=== PATIENT | female | born 1945 | race Caucasian/White ===

== ENCOUNTER 2017-11-18 14:05 | Emergency (ER) | payer OTHER ==
[2017-11-18] MEDS ORDERED: ALBUTEROL 2.5 MG/3 ML NEB SOL ONE ×2 (15:42→18:21)
[2017-11-18] MEDS ORDERED: METHYLPREDNISOLONE 125 MG INJ ONE (15:42)
[2017-11-18] MEDS ORDERED: IPRATROPIUM BROM 0.5MG/2.5ML ONE ×2 (15:42→18:21)
--- NOTE | 2017-11-18 15:57 | RAD REPORT ---
EXAM DESCRIPTION: Isaura Single View11/18/2017 3:47 pm CLINICAL HISTORY: cough COMPARISON: February 2017 FINDINGS: The lungs appear clear of acute infiltrate. The heart is normal size IMPRESSION: No acute abnormalities displayed
[2017-11-18 17:10] LABS: Absolute Lymphocytes (CBC) 1.5 K/uL (0.7-4.9); Absolute Monocytes 0.7 K/uL (0.1-1.3); Basophils % 0.8 % (0-1.3); Hematocrit 34.6 % (36.0-45.0); Lymphocytes % 23.3 % (15.3-44.8); MCH 29.7 pg (27.0-35.0); MCV 90.6 fL (80-100); MPV 7.9 fL (7.6-11.3); Monocytes % 11.1 % (3.3-12.3); RBC Red Blood Cell Count 3.82 M/uL (3.86-4.86)
[2017-11-18 17:18] LABS: Potassium 3.7 mEq/L (3.6-5.0)
[2017-11-18 17:19] LABS: Magnesium 1.9 mg/dL (1.8-2.5)
[2017-11-18 19:12] LABS: Urine Blood TRACE (NEG); Urine Glucose NEGATIVE (NEG); Urine Protein NEGATIVE (NEG); Urine Specific Gravity 1.005 (1.005-1.030)
--- NOTE | 2017-11-18 19:23 | ER ---
Nurse's Notes [facility] Name: Bridget Meraz Age: 72 yrs Sex: Female : 1945 Arrival Date: 11/18/2017 Time: 14:09 Bed 30 Private MD: Zeenat Ruiz Diagnosis: Acute bronchitis;Chronic obstructive pulmonary disease with (acute) exacerbation Presentation: 11/18 14:15 Presenting complaint: Patient states: productive cough with green sputum, sinus sv congestion started 2 months ago and has increased since Friday. Transition of care: patient was not received from another setting of care. Onset of symptoms was November 14, 2017. 14:15 Method Of Arrival: Wheelchair sv 14:15 Acuity: ROCIO 3 sv 17:09 Risk Assessment: Do you want to hurt yourself or someone else? Patient reports no mb3 desire to harm self or others. Initial Sepsis Screen: Does the patient meet any 2 criteria? No. Patient's initial sepsis screen is negative. Does the patient have a suspected source of infection? No. Patient's initial sepsis screen is negative. Care prior to arrival: None. Triage Assessment: 19:34 General: Appears distressed, uncomfortable, ill. General: Behavior is calm, mb3 cooperative, appropriate for age. Respiratory: Onset: The symptoms/episode began/occurred gradually, the patient has moderate shortness of breath. Respiratory: Reports cough that is productive. Historical: - Allergies: 14:19 lidocaine preservative; sv - Home Meds: 14:19 [place] Thyroid 90 mg Oral tab [Active]; omeprazole 40 mg Oral cpDR 1 cap once daily sv [Active]; atenolol 50 mg Oral tab 1 tab once daily [Active]; Mucinex 600 mg Oral Ta12 1 tab every 12 hours [Active]; tramadol 50 mg Oral tab 2 tabs every 6 hours [Active]; celecoxib 200 mg Oral cap 1 cap once daily [Active]; Plavix 75 mg Oral tab 1 tab once daily [Active]; - PMHx: 14:19 Head injury; Atrial Fib; sv - PSHx: 14:19 head surgery; sv - Immunization history:: Adult Immunizations up to date. - Social history:: Smoking status: unknown. - Ebola Screening: : Patient denies travel to an Ebola-affected area in the 21 days before illness onset No symptoms or risks identified at this time. Screenin:07 Abuse screen: Denies threats or abuse. Nutritional screening: No deficits noted. mb3 Tuberculosis screening: No symptoms or risk factors identified. Fall Risk No fall in past 12 months (0 pts). Secondary diagnosis (15 points) IV access (20 points). Ambulatory Aid- Crutches/Cane/Walker (15 pts). Gait- Normal/Bed Rest/Wheelchair (0 pts) Mental Status- Oriented to own ability (0 pts). Total [place] Fall Scale indicates High Risk Score (45 or more points). Fall prevention measures have been instituted. Side Rails Up X 2 Placed Close to Nursing Station Frequent Obs/Assessments Occuring As available patient and family educated on Fall Prevention Program and Strategies. Assessment: 18:32 General: Appears ill, well groomed, Behavior is calm, cooperative, appropriate for age. mb3 Pain: Denies pain. Neuro: Level of Consciousness is awake, alert, obeys commands, Oriented to person, place, time, situation, Appropriate for age. Cardiovascular: Denies chest pain, Heart tones present Capillary refill < 3 seconds Patient's skin is warm and dry. Rhythm is sinus rhythm. Respiratory: Reports cough that is productive, labored breathing since last week. Airway is patent Respiratory effort is even, labored, Respiratory pattern is regular, symmetrical, Breath sounds are coarse bilaterally. in right upper lobe and left upper lobe Breath sounds are diminished bilaterally. in right middle lobe, left lower lobe, right lower lobe, left posterior lower lobe, right posterior middle lobe and right posterior lower lobe. GI: No signs and/or symptoms were reported involving the gastrointestinal system. Abdomen is flat, Bowel sounds present X 4 quads. : No signs and/or symptoms were reported regarding the genitourinary system. EENT: Reports nasal congestion since last week. Vital Signs: 14:19 BP 124 / 76; Pulse 66; Resp 20; Temp 96.6; Pulse Ox 96% ; Weight 79.38 kg; Height 5 ft. sv 7 in. (170.18 cm); Pain 0/10; 17:00 BP 175 / 115; Pulse 62; Resp 20; Pulse Ox 100% on R/A; mb3 17:00 BP 153 / 87; Pulse 62; Resp 21; Pulse Ox 100% on R/A; mb3 18:31 BP 157 / 85; Pulse 83; Resp 20; Pulse Ox 100% on R/A; mb3 14:19 Body Mass Index 27.41 (79.38 kg, 170.18 cm) sv ED Course: 14:09 Patient arrived in ED. mr 14:10 Mobile, Zeenat is Private Physician. mr 14:16 Triage completed. sv 14:19 Arm band placed on right wrist. sv 14:19 Patient placed in waiting room, Patient notified of wait time. sv 15:09 Camden Quintero PA is PHCP. jr8 15:09 Alberto Terrazas MD is Attending Physician. jr8 15:11 Sean Aguilera, KAYCEE is Primary Nurse. mb3 15:45 X-ray completed. Portable x-ray completed in exam room. Patient tolerated procedure kc2 well. 15:45 XRAY Chest (1 view) In Process Unspecified. EDMS 16:02 EKG done, by laundry technician. reviewed by Camden SHEPHERD. sm3 16:46 Inserted saline lock: 20 gauge in right antecubital area, using aseptic technique. mb3 Blood collected. 18:35 Patient has correct armband on for positive identification. Placed in gown. Bed in low mb3 position. Call light in reach. Side rails up X 1. monitoring analyst on. Pulse ox on. NIBP on. 19:36 No provider procedures requiring assistance completed. IV discontinued, intact, mb3 bleeding controlled, No redness/swelling at site. Pressure dressing applied. Administered Medications: 16:46 Drug: SOLU-Medrol 125 mg Route: IVP; Site: right antecubital; mb3 19:36 Follow up: Response: No adverse reaction mb3 16:50 Drug: Albuterol - atroVENT (3:1) (2.5 mg - 0.5 mg) 3 ml Route: Nebulizer; mb3 19:36 Follow up: Response: No adverse reaction mb3 18:20 Drug: Albuterol - atroVENT (3:1) (2.5 mg - 0.5 mg) 3 ml Route: Nebulizer; mb3 19:36 Follow up: Response: No adverse reaction mb3 Outcome: 19:22 Discharge ordered by . jr8 19:35 Discharged to home ambulatory. mb3 19:35 Condition: stable 19:35 Discharge instructions given to patient, Instructed on discharge instructions, follow up and referral plans. medication usage, Demonstrated understanding of instructions, follow-up care, medications, Prescriptions given X 4. 19:37 Patient left the ED. mb3 Signatures: Dispatcher [employer] EDMS Daniela Reyes, Chuyita Wahl RN mr Camden Quintero PA PA jr8 Yarely Nunez2 Sean Aguilera RN RN mb3 Leah Davila3
--- NOTE | 2017-11-18 19:23 | EDPHYS ---
Physician Documentation [facility] Name: Bridget Meraz Age: 72 yrs Sex: Female : 1945 Arrival Date: 11/18/2017 Time: 14:09 Bed 30 Private MD: Zeenat Ruiz ED Physician Alberto Terrazas HPI: 11/18 15:45 This 72 yrs old Female presents to ER via Wheelchair with complaints of jr8 Cough, Breathing Difficulty. 15:45 The patient or guardian reports cough, that is intermittent, described as moderate, jr8 with productive sputum, that is yellow, difficulty breathing. Onset: The symptoms/episode began/occurred gradually, 2 day(s) ago. Severity of symptoms: At their worst the symptoms were moderate, in the emergency department the symptoms are unchanged. Associated signs and symptoms: The patient has no apparent associated signs or symptoms. The patient has not experienced similar symptoms in the past. The patient has not recently seen a physician. Historical: - Allergies: 14:19 lidocaine preservative; sv - Home Meds: 14:19 [place] Thyroid 90 mg Oral tab [Active]; omeprazole 40 mg Oral cpDR 1 cap once daily sv [Active]; atenolol 50 mg Oral tab 1 tab once daily [Active]; Mucinex 600 mg Oral Ta12 1 tab every 12 hours [Active]; tramadol 50 mg Oral tab 2 tabs every 6 hours [Active]; celecoxib 200 mg Oral cap 1 cap once daily [Active]; Plavix 75 mg Oral tab 1 tab once daily [Active]; - PMHx: 14:19 Head injury; Atrial Fib; sv - PSHx: 14:19 head surgery; sv - Immunization history:: Adult Immunizations up to date. - Social history:: Smoking status: unknown. - Ebola Screening: : Patient denies travel to an Ebola-affected area in the 21 days before illness onset No symptoms or risks identified at this time. ROS: 15:45 Eyes: Negative for injury, pain, redness, and discharge, ENT: Negative for injury, jr8 pain, and discharge, Neck: Negative for injury, pain, and swelling, Cardiovascular: Negative for chest pain, palpitations, and edema, Abdomen/GI: Negative for abdominal pain, nausea, vomiting, diarrhea, and constipation, Back: Negative for injury and pain, MS/Extremity: Negative for injury and deformity, Skin: Negative for injury, rash, and discoloration, Neuro: Negative for headache, weakness, numbness, tingling, and seizure. 15:45 Respiratory: Positive for cough, with yellow sputum, dyspnea on exertion, shortness of breath, wheezing. Exam: 15:45 Eyes: Pupils equal round and reactive to light, extra-ocular motions intact. Lids and jr8 lashes normal. Conjunctiva and sclera are non-icteric and not injected. Cornea within normal limits. Periorbital areas with no swelling, redness, or edema. ENT: Nares patent. No nasal discharge, no septal abnormalities noted. Tympanic membranes are normal and external auditory canals are clear. Oropharynx with no redness, swelling, or masses, exudates, or evidence of obstruction, uvula midline. Mucous membranes moist. Neck: Trachea midline, no thyromegaly or masses palpated, and no cervical lymphadenopathy. Supple, full range of motion without nuchal rigidity, or vertebral point tenderness. No Meningismus. Cardiovascular: Regular rate and rhythm with a normal S1 and S2. No gallops, murmurs, or rubs. Normal PMI, no JVD. No pulse deficits. Abdomen/GI: Soft, non-tender, with normal bowel sounds. No distension or tympany. No guarding or rebound. No evidence of tenderness throughout. Back: No spinal tenderness. No costovertebral tenderness. Full range of motion. Skin: Warm, dry with normal turgor. Normal color with no rashes, no lesions, and no evidence of cellulitis. MS/ Extremity: Pulses equal, no cyanosis. Neurovascular intact. Full, normal range of motion. Neuro: Awake and alert, GCS 15, oriented to person, place, time, and situation. Cranial nerves II-XII grossly intact. Motor strength 5/5 in all extremities. Sensory grossly intact. Cerebellar exam normal. Normal gait. 15:45 Respiratory: the patient does not display signs of respiratory distress, Respirations: normal, symetrical, no use of accessory muscles, no grunting, no evidence of nasal flaring, no appreciated paradoxical movements, no prolonged exhalations, no pursed lip breathing, no retractions, no shallow respirations, no splinting, no tachypnea, Breath sounds: wheezing: expiratory that is moderate, is heard diffusely. Vital Signs: 14:19 BP 124 / 76; Pulse 66; Resp 20; Temp 96.6; Pulse Ox 96% ; Weight 79.38 kg; Height 5 ft. sv 7 in. (170.18 cm); Pain 0/10; 17:00 BP 175 / 115; Pulse 62; Resp 20; Pulse Ox 100% on R/A; mb3 17:00 BP 153 / 87; Pulse 62; Resp 21; Pulse Ox 100% on R/A; mb3 18:31 BP 157 / 85; Pulse 83; Resp 20; Pulse Ox 100% on R/A; mb3 14:19 Body Mass Index 27.41 (79.38 kg, 170.18 cm) sv MDM: 15:09 Patient medically screened. jr 19:20 Differential Diagnosis: Bronchitis Influenza Pneumonia Other COPD with exacerbation. jr8 Data reviewed: vital signs, nurses notes, lab test result(s), EKG, radiologic studies, plain films, and as a result, I will discharge patient. Data interpreted: Pulse oximetry: on room air is 96 %. Interpretation: normal. Counseling: I had a detailed discussion with the patient and/or guardian regarding: the historical points, exam findings, and any diagnostic results supporting the discharge/admit diagnosis, lab results, radiology results, the need for outpatient follow up, a family practitioner, to return to the emergency department if symptoms worsen or persist or if there are any questions or concerns that arise at home. Response to treatment: the patient's symptoms have markedly improved after treatment. ED course: Patient stated that she is breath much better. Wants to go home. Oxygen saturation normal. Will send home on albuterol and steroids. History of COPD. Will treat with antibiotics due to exacerbation . 11/18 15:18 Order name: Basic Metabolic Panel; Complete Time: 17: 11/18 15:18 Order name: BNP; Complete Time: 18:01 [facility] 11/18 15:18 Order name: CBC with Diff; Complete Time: 18:01 [facility] 11/18 15:18 Order name: Magnesium; Complete Time: 17:22 [facility] 11/18 15:19 Order name: Blood Culture Adult (2) [facility] 11/18 19:09 Order name: Urine Dipstick--Ancillary (enter results); Complete Time: 19:14 11/18 15:18 Order name: XRAY Chest (1 view); Complete Time: 15:58 11/18 15:18 Order name: EKG; Complete Time: 15:19 11/18 15:18 Order name: Cardiac monitoring; Complete Time: 17:11/18 15:18 Order name: EKG - Nurse/Tech; Complete Time: 17:11/18 15:18 Order name: IV Saline Lock; Complete Time: 17:11/18 15:18 Order name: Labs collected and sent; Complete Time: :11/18 15:18 Order name: O2 Per Protocol; Complete Time: 17:11/18 15:18 Order name: O2 Sat Monitoring; Complete Time: :11/18 15:18 Order name: Urine Dipstick-Ancillary (obtain specimen); Complete Time: 17: Administered Medications: 16:46 Drug: SOLU-Medrol 125 mg Route: IVP; Site: right antecubital; mb3 19:36 Follow up: Response: No adverse reaction mb3 16:50 Drug: Albuterol - atroVENT (3:1) (2.5 mg - 0.5 mg) 3 ml Route: Nebulizer; mb3 19:36 Follow up: Response: No adverse reaction mb3 18:20 Drug: Albuterol - atroVENT (3:1) (2.5 mg - 0.5 mg) 3 ml Route: Nebulizer; mb3 19:36 Follow up: Response: No adverse reaction mb3 Disposition: 11/19 07:27 Co-signature as Attending Physician, Alberto Terrazas MD I agree with the assessment and geronimo plan of care. Disposition: 11/18/17 19:22 Discharged to Home. Impression: Acute bronchitis, Chronic obstructive pulmonary disease with (acute) exacerbation. - Condition is Stable. - Discharge Instructions: Acute Bronchitis, Chronic Obstructive Pulmonary Disease. - Prescriptions for Prednisone 20 mg Oral Tablet - take 1 tablet by ORAL route once daily for 5 days; 5 tablet. Albuterol Sulfate 2.5 mg /3 mL (0.083 %) Inhalation Solution for Nebulization - inhale 1 unit by NEBULIZATION route every 8 hours As needed; 1 box. Zithromax Z- Angel 250 mg Oral Tablet - take 1 tablet by ORAL route as directed for 5 days Day 1 - take two (2) tablets one time. Day 2, 3, 4 , 5 take one (1) tablet once daily.; 6 tablet. Albuterol Sulfate 90 mcg/actuation - inhale 1-2 puff by INHALATION route every 4-6 hours; 1 Inhaler. - Medication Reconciliation Form, Thank You Letter, Antibiotic Education, Prescription Opioid Use form. - Follow up: Private Physician; When: 2 - 3 days; Reason: Recheck today's complaints, Continuance of care, Re-evaluation by your physician. - Problem is new. - Symptoms have improved. Signatures: Dispatcher [employer] Daniela Briceno RN RN Alberto Benavidez MD MD cha Roszak, Josh, PA PA jr8 Sean Aguilera RN RN mb3 Corrections: (The following items were deleted from the chart) 11/18 19:37 19:22 11/18/2017 19:22 Discharged to Home. Impression: Acute bronchitis; Chronic mb3 obstructive pulmonary disease with (acute) exacerbation. Condition is Stable. Forms are Medication Reconciliation Form, Thank You Letter, Antibiotic Education, Prescription Opioid Use. Follow up: Private Physician; When: 2 - 3 days; Reason: Recheck today's complaints, Continuance of care, Re-evaluation by your physician. Problem is new. Symptoms have improved. jr8
--- NOTE | 2017-11-18 21:33 | EKG ---
Test Date: 2017-11-18 Test Time: 15:44:52 Internal Audit Consultant: RAMON MEASUREMENT RESULTS: Intervals: Rate: 57 AR: 220 QRSD: 92 QT: 442 QTc: 430 [place]: P: 48 AR: 220 QRS: -18 T: 21 INTERPRETIVE STATEMENTS: Sinus bradycardia with sinus arrhythmia with 1st degree AV block Low voltage QRS Cannot rule out Anteroseptal infarct, age undetermined Abnormal ECG Compared to ECG 07/01/2013 12:00:20 Low QRS voltage now present Sinus rhythm no longer present Myocardial infarct finding still present Electronically Signed On 11-18-17 21:33:15 CDT by Yassine Buckner
== END 2017-11-18 19:37 | disposition home or self-care (01) ==
LOC: ER 14:05
DX: J20.9 Acute bronchitis, unspecified (principal); J44.0 Chronic obstructive pulmonary disease with (acute) lower respiratory infection; I48.91 Unspecified atrial fibrillation; Z79.01 Long term (current) use of anticoagulants; Z88.8 Allergy status to other drugs, medicaments and biological substances
CPT/HCPCS: 36415; 71045; 80048; 81003; 83735; 83880; 85025; 87040 ×2; 93005; 94640; 96374; 99285; J2930

== ENCOUNTER 2018-10-23 14:18 | Emergency (ER) | payer MEDICARE, OTHER ==
[2018-10-23] MEDS ORDERED: MEPERIDINE HCL 25 MG/0.5 ML ONE (15:03)
--- NOTE | 2018-10-23 15:25 | RAD REPORT ---
EXAM DESCRIPTION: CT - Pelvis Wo Cont - 10/23/2018 3:01 pm CLINICAL HISTORY: Pain;Trauma COMPARISON: No comparisons TECHNIQUE: All CT scans are performed using dose optimization technique as appropriate and may inclu de automated exposure control or mA/KV adjustment according to patient size. FINDINGS: The bones are osteopenic. No fracture, subluxation or aggressive marrow lesion. Mild osteoarthritic changes involving both hips . No fracture, dislocation or AVN. IMPRESSION: No fracture or other acute process identified.
--- NOTE | 2018-10-23 15:36 | RAD REPORT ---
EXAM DESCRIPTION: CT - Spine Lumbar Wo Con - 10/23/2018 2:59 pm CLINICAL HISTORY: Radiculopathy. LOWER BACK PAIN COMPARISON: No comparisons TECHNIQUE: Axial noncontrast CT imaging of the lumbar spine was performed with coronal and sagittal re-formatted images. All CT scans are performed using dose optimization technique as appropriate and may include automated exposure control or mA/KV adjustment according to patient size. FINDINGS: Mild anterior wedge compression fracture is seen affecting L3 along the anterior superior endplate. Loss of vertebral body height is minimal estimated at 5-10%. Paraspinal tissues are normal in thickness. No paraspinal abscess or hematoma seen. 4 mm degenerative anterolisthesis of L3 on 4. 6 mm degenerative anterolisthesis of L4 on 5. Hardware is present L4-5. IMPRESSION: Mild anterior wedge compression fracture affecting the L3 vertebral body without canal c ompromise. This is likely acute. Loss of vertebral body height is minimal at 5-10%. MR imaging lumbar spine could be obtained for confirmation of acuity of this injury.
--- NOTE | 2018-10-23 15:50 | ER ---
Nurse's Notes [facility] Name: Bridget Meraz Age: 73 yrs Sex: Female : 1945 Arrival Date: 10/23/2018 Time: 14:22 Bed 18 Private MD: Zeenat Ruiz Diagnosis: Wedge compression fracture of third lumbar vertebra Presentation: 10/23 14:26 Presenting complaint: Patient states: slip and fall on Wed and injured her back. c/o sv mid and low back pain. Transition of care: patient was not received from another setting of care. Onset of symptoms was October 21, 2018. Initial Sepsis Screen: Does the patient meet any 2 criteria? No. Patient's initial sepsis screen is negative. Does the patient have a suspected source of infection? No. Patient's initial sepsis screen is negative. Care prior to arrival: Medication(s) given: [place] 10 mg taken at 1200 today. 14:26 Method Of Arrival: Ambulatory sv 14:26 Acuity: ROCIO 3 sv Historical: - Allergies: 14:28 lidocaine preservative; sv - PMHx: 14:28 Atrial Fib; Head injury; sv - PSHx: 14:28 head surgery; sv Screenin:45 Abuse screen: Denies threats or abuse. Nutritional screening: No deficits noted. em Tuberculosis screening: No symptoms or risk factors identified. Fall Risk None identified. Assessment: 14:45 General: Appears in no apparent distress. uncomfortable, Behavior is calm, cooperative. em Pain: Complains of pain in lumbar area Pain currently is 9 out of 10 on a pain scale. Neuro: Level of Consciousness is awake, alert, obeys commands, Oriented to person, place, time, situation, Bill Of Lading Clerk are equal bilaterally Moves all extremities. Speech is normal, Intact. Cardiovascular: Capillary refill < 3 seconds Patient's skin is warm and dry. Respiratory: Airway is patent Respiratory effort is even, unlabored, Respiratory pattern is regular, symmetrical. Derm: Skin is intact, is healthy with good turgor, Skin is pink, warm \T\ dry. Musculoskeletal: Circulation, motion, and sensation intact. Capillary refill < 3 seconds, Range of motion: intact in all extremities. 14:55 Reassessment: I agree with previous assessment. 15:45 Reassessment: Patient appears in no apparent distress at this time. Patient and/or em family updated on plan of care and expected duration. Pain level reassessed. Patient is alert, oriented x 3, equal unlabored respirations, skin warm/dry/pink. Vital Signs: 14:28 BP 138 / 76; Pulse 70; Resp 22; Temp 98.2; Pulse Ox 95% ; Weight 81.65 kg; Height 5 ft. sv 7 in. (170.18 cm); Pain 9/10; 15:45 BP 145 / 68; Pulse 68; Resp 18; Pulse Ox 99% on R/A; Pain 5/10; em 14:28 Body Mass Index 28.19 (81.65 kg, 170.18 cm) sv ED Course: 14:22 Patient arrived in ED. rg4 14:22 Zeenat Ruiz is Private Physician. rg4 14:28 Triage completed. sv 14:28 Arm band placed on. sv 14:34 Maryanne Austin FNP-C is [facility]. kb 14:35 Shaheen Carbone MD is Attending Physician. kb 14:45 Patient has correct armband on for positive identification. Bed in low position. Call em light in reach. Adult w/ patient. 14:49 Jimmy Schwab LVN is Primary Nurse. em 14:59 CT Lumbar Spine Wo Con In Process Unspecified. EDMS 15:00 CT Pelvis wo Cont In Process Unspecified. EDMS 16:02 No provider procedures requiring assistance completed. Patient did not have IV access em during this emergency room visit. Administered Medications: 15:16 Drug: Demerol 25 mg Route: IM; Site: right deltoid; em 15:45 Follow up: Response: No adverse reaction; Pain is decreased em Outcome: 15:49 Discharge ordered by MD. kb 16:02 Discharged to home via wheelchair. em 16:02 Condition: good 16:02 Discharge instructions given to patient, Instructed on discharge instructions, follow up and referral plans. Demonstrated understanding of instructions, follow-up care. 16:06 Patient left the ED. em Signatures: Dispatcher [employer] EDMS Maryanne Austin FNP-C FNP-Ckb Verde, Stephanie, RN RN sv Jimmy Schwab LVN LVN em Nolvia Mcfarlane RN RN hb Garcia, Rubi rg4 Corrections: (The following items were deleted from the chart) 14:29 14:26 Care prior to arrival: None. sv sv
--- NOTE | 2018-10-23 15:50 | EDPHYS ---
Physician Documentation [facility] Name: Bridget Meraz Age: 73 yrs Sex: Female : 1945 Arrival Date: 10/23/2018 Time: 14:22 Bed 18 Private MD: Zeenat Ruiz ED Physician Shaheen Carbone HPI: 10/23 15:48 This 73 yrs old Female presents to ER via Ambulatory with complaints of Back kb Pain. 15:48 Details of fall: The patient fell from an upright position, while walking. Onset: The kb symptoms/episode began/occurred 2 day(s) ago. Associated injuries: The patient sustained injury to the low back, pain, pain with movement. Severity of symptoms: At their worst the symptoms were moderate, in the emergency department the symptoms are unchanged. The patient has not experienced similar symptoms in the past. The patient has not recently seen a physician. Historical: - Allergies: 14:28 lidocaine preservative; sv - PMHx: 14:28 Atrial Fib; Head injury; sv - PSHx: 14:28 head surgery; sv ROS: 15:48 Constitutional: Negative for fever, chills, and weight loss, Cardiovascular: Negative kb for chest pain, palpitations, and edema, Respiratory: Negative for shortness of breath, cough, wheezing, and pleuritic chest pain, Abdomen/GI: Negative for abdominal pain, nausea, vomiting, diarrhea, and constipation, MS/Extremity: Negative for injury and deformity, Skin: Negative for injury, rash, and discoloration, Neuro: Negative for headache, weakness, numbness, tingling, and seizure. 15:48 Back: Positive for injury or acute deformity, pain at rest, pain with movement, Negative for decreased range of motion, radiated pain. Exam: 15:47 Constitutional: This is a well developed, well nourished patient who is awake, alert, kb and in no acute distress. Head/Face: Normocephalic, atraumatic. Chest/axilla: Normal chest wall appearance and motion. Nontender with no deformity. No lesions are appreciated. Cardiovascular: Regular rate and rhythm with a normal S1 and S2. No gallops, murmurs, or rubs. Normal PMI, no JVD. No pulse deficits. Respiratory: Lungs have equal breath sounds bilaterally, clear to auscultation and percussion. No rales, rhonchi or wheezes noted. No increased work of breathing, no retractions or nasal flaring. Abdomen/GI: Soft, non-tender, with normal bowel sounds. No distension or tympany. No guarding or rebound. No evidence of tenderness throughout. Skin: Warm, dry with normal turgor. Normal color with no rashes, no lesions, and no evidence of cellulitis. MS/ Extremity: Pulses equal, no cyanosis. Neurovascular intact. Full, normal range of motion. Neuro: Awake and alert, GCS 15, oriented to person, place, time, and situation. Cranial nerves II-XII grossly intact. Motor strength 5/5 in all extremities. Sensory grossly intact. Cerebellar exam normal. Normal gait. 15:47 Back: pain, that is moderate, of the lumbar area, left low back and right low back, ROM is painful, normal spinal alignment noted. Vital Signs: 14:28 BP 138 / 76; Pulse 70; Resp 22; Temp 98.2; Pulse Ox 95% ; Weight 81.65 kg; Height 5 ft. sv 7 in. (170.18 cm); Pain 9/10; 15:45 BP 145 / 68; Pulse 68; Resp 18; Pulse Ox 99% on R/A; Pain 5/10; em 14:28 Body Mass Index 28.19 (81.65 kg, 170.18 cm) sv MDM: 14:35 Patient medically screened. kb 15:47 Data reviewed: vital signs, nurses notes. Data interpreted: Pulse oximetry: on room air kb is 95 %. Interpretation: normal. Counseling: I had a detailed discussion with the patient and/or guardian regarding: the historical points, exam findings, and any diagnostic results supporting the discharge/admit diagnosis, radiology results, the need for outpatient follow up, a family practitioner, to return to the emergency department if symptoms worsen or persist or if there are any questions or concerns that arise at home. 15:50 ED course: Pt takes [place] 10/325mg for chronic pain. kb 10/23 14:45 Order name: CT Lumbar Spine Wo Con; Complete Time: 15:41 kb 10/23 14:45 Order name: CT Pelvis wo Cont; Complete Time: 15:27 kb Administered Medications: 15:16 Drug: Demerol 25 mg Route: IM; Site: right deltoid; em 15:45 Follow up: Response: No adverse reaction; Pain is decreased em Disposition: 10/23/18 15:49 Discharged to Home. Impression: Wedge compression fracture of third lumbar vertebra. - Condition is Stable. - Discharge Instructions: Spinal Compression Fracture. - Medication Reconciliation Form, Thank You Letter, Antibiotic Education, Prescription Opioid Use form. - Follow up: Emergency Department; When: As needed; Reason: Worsening of condition. Follow up: Private Physician; When: 2 - 3 days; Reason: Recheck today's complaints, Continuance of care, Re-evaluation by your physician. Addendum: 10/24/2018 22:26 Co-signature as Attending Physician, Shaheen Carbone MD. r n Signatures: Dispatcher [employer] EDMaryanne Dinh, [employer]-Daniela Ken, RN RN Jimmy Schwab, HAT MENDER HAT MENDER Shaheen Olmstead MD MD internal control specialist: (The following items were deleted from the chart) 10/23 16:06 15:49 10/23/2018 15:49 Discharged to Home. Impression: Wedge compression fracture of em third lumbar vertebra. Condition is Stable. Forms are Medication Reconciliation Form, Thank You Letter, Antibiotic Education, Prescription Opioid Use. Follow up: Emergency Department; When: As needed; Reason: Worsening of condition. Follow up: Private Physician; When: 2 - 3 days; Reason: Recheck today's complaints, Continuance of care, Re-evaluation by your physician. kb
== END 2018-10-23 16:06 | disposition home or self-care (01) ==
LOC: ER 14:18
DX: S32.030A Wedge compression fracture of third lumbar vertebra, initial encounter for closed fracture (principal); W18.30XA Fall on same level, unspecified, initial encounter; Y93.01 Activity, walking, marching and hiking; I48.91 Unspecified atrial fibrillation
CPT/HCPCS: 72131; 72192; 96372; 99283; J2175